=== PATIENT | female | born 1975 | race Caucasian/White ===

== ENCOUNTER → 2018-01-16 | Outpatient (CLI) | payer OTHER | LOC: M RAD 08:48 | DX: F17.210 Nicotine dependence, cigarettes, uncomplicated (principal); R91.8 Other nonspecific abnormal finding of lung field | CPT/HCPCS: 71046 ==

== ENCOUNTER → 2018-01-17 | Outpatient (CLI) | payer OTHER ==
[2018-01-17 13:08] LABS: BASO # 0.1 10^3/uL (0.0-0.2); BASO % 0.6 % (0.0-1.0); EOS # 0.1 10^3/uL (0.0-0.50); EOS % 0.7 % (0.0-3.0); HEMATOCRIT 47.3 % (36.0-47.0); HEMOGLOBIN 15.9 g/dl (12.0-15.5); IMMATURE GRANULOCYTE % 0.6 % (0-3.0); LYMPH # 1.7 10^3/uL (1.5-4.5); LYMPH % 11.9 % (24.0-44.0); MEAN CORPUSCULAR HEMOGLOBIN 33.3 pg (27.0-33.0); MEAN CORPUSCULAR HGB CONC 33.6 g/dl (32.0-36.5); MEAN CORPUSCULAR VOLUME 99.2 fl (80.0-96.0); MONO # 0.9 10^3/uL (0.0-0.8); MONO % 6.3 % (0.0-5.0); NEUTROPHILS # 11.3 10^3/uL (1.8-7.7); NEUTROPHILS % 79.9 % (36.0-66.0); PLATELET COUNT, AUTOMATED 170 10^3/uL (150-450); RED BLOOD COUNT 4.77 10^6/uL (4.00-5.40); RED CELL DISTRIBUTION WIDTH 13.3 % (11.5-14.5); WHITE BLOOD COUNT 14.1 10^3/uL (4.0-10.0)
== END ==
LOC: M LAB 12:11
DX: F41.9 Anxiety disorder, unspecified (principal); F10.20 Alcohol dependence, uncomplicated; I10 Essential (primary) hypertension
CPT/HCPCS: 85025

== ENCOUNTER → 2018-08-22 | Outpatient (CLI) | payer OTHER ==
[~2018-08-22] MED LIST: /ZIAC5TA; AMLO5TAB6 PO; BUSP10TA PO; CENT1TAB PO; CLAR5CHW; EFFE37.527; FLON0.05; FLUTISP; LOSA50TA88 PO; PAXI40TA; TRAZ-160 PO; TRAZ50TA; VENL75CA47 PO
--- NOTE | 2018-08-22 09:35 | REP ---
Clinical: Abdominal pain with leukocytosis. Technique: Real time lincoln scale ultrasound examination using curved array transducer. Findings: The liver demonstrates coarsened echotexture with increased echogenicity suggesting fatty infiltration and/or hepatocellular disease. Few scattered hepatic calcifications suggest prior granulomatous disease. The spleen is upper limits of normal in size measuring 10.2 x 3.6 x 10.9 cm with normal contour and no obvious significant focal splenic lesion identified. Scattered parenchymal calcifications are again consistent with prior granulomatous disease. The pancreas is normal in appearance. The gallbladder is unremarkable and without gallstones, wall thickening, or pericholecystic fluid. No biliary ductal dilatation is appreciated and the common bile that measures 4.7 mm diameter. The bilateral kidneys are relatively normal in reniform shape without hydronephrosis, nephrolithiasis, cystic or renal mass lesion. Right kidney measures 12.0 x 5.1 x 4.2 cm. Left kidney measures 10.5 x 5.3 x 4.9 cm. Abdominal aorta is unremarkable and measures 2.7 cm maximal diameter. No ascites noted. Impression: 1. Findings compatible with prior granulomatous disease including calcifications in the liver and spleen. 2. Hepatocellular disease and/or hepatosteatosis without obvious focal hepatic lesion identified. Electronically Signed by Miles Schwarz MD 08/22/2018 09:27 A
== END ==
LOC: M RAD 08:09
PROVIDERS: ATTEND Nurse Practitioner Family
DX: D72.829 Elevated white blood cell count, unspecified (principal)

== ENCOUNTER 2019-03-29 10:48 | Emergency (ER) | payer MEDICAID, OTHER, SELFPAY ==
[~2019-03-29] VITALS: Ht 157.5 cm; Wt 61.4 kg
[2019-03-29 10:48] VITALS: BP 132/92
[~2019-03-29 10:48] MED LIST changes: -/ZIAC5TA; -TRAZ-160 PO; +TRAZ-252 PO; +ZIAC1TAB
--- NOTE | 2019-03-29 11:55 | REP ---
RIGHT ANKLE, FOUR VIEWS: There is no evidence of an acute fracture, dislocation or intrinsic bone disease. IMPRESSION: No fracture or dislocation. Electronically Signed by Dakotah Downs MD 04/01/2019 02:54 P
[2019-03-29] MEDS ORDERED: LORA-674 PO (12:01)
[2019-03-29] MEDS ORDERED: MONT10TA2 PO (12:01)
[2019-03-29] MEDS ORDERED: KETOROLAC TROMETHAMINE 10 MG TAB PO ONE (13:00)
== END 2019-03-29 13:14 | disposition home or self-care (01) ==
LOC: M ED 10:48
DX: S93.401A Sprain of unspecified ligament of right ankle, initial encounter (principal); W10.8XXA Fall (on) (from) other stairs and steps, initial encounter; Y92.89 Other specified places as the place of occurrence of the external cause; I10 Essential (primary) hypertension; F41.9 Anxiety disorder, unspecified; F32.9 Major depressive disorder, single episode, unspecified; F17.200 Nicotine dependence, unspecified, uncomplicated; Z79.899 Other long term (current) drug therapy

== ENCOUNTER → 2023-03-18 | Outpatient (CLI) | payer MEDICAID, OTHER ==
[~2023-03-18] MED LIST changes: +AMLO1TAB24 PO; -AMLO5TAB6 PO; +FLUT50SP17; -FLUTISP; +LORA-1041 PO; +LOSA50TA28 PO; -LOSA50TA88 PO; +MONT10TA97 PO
[2023-03-18 12:24] LABS: C REACTIVE PROTEIN QUANTITATIV < 0.40 MG/DL (<1.0)
[2023-03-18 12:57] LABS: HIV 1&2 SCREEN NEGATIVE (NEGATIVE)
[2023-03-18 13:04] LABS: HEPATITIS B CORE ANTIBODY IGM NEGATIVE (NEGATIVE); HEPATITIS C VIRUS ABY INDEX 0.04 INDEX (<0.8)
== END ==
LOC: M LAB 11:11
PROVIDERS: ATTEND Nurse Practitioner Family
DX: R21 Rash and other nonspecific skin eruption (principal)

== ENCOUNTER → 2024-05-30 | Outpatient (REF) ==
[~2024-05-30] MED LIST changes: -FLUT50SP17; +FLUTISP
== END ==
LOC: M PLAIMG 12:01
PROVIDERS: ATTEND Internal Medicine
DX: R52 Pain, unspecified (principal)